=== PATIENT | female | born 1985 | race Caucasian/White ===

== ENCOUNTER 2017-08-19 00:55 | Emergency (ER) | payer SELFPAY ==
[~2017-08-19] VITALS: Ht 172.7 cm; Wt 100.3 kg
[~2017-08-19 00:55] MED LIST: APRESOLINE50 MG PO; BACTRIM,SEPT1 TABLET PO; CATAPRES0.2 MG PO; CLONIDINE HCL0.2 MG PO; Diabeta,Micronase PO; GEODON40 MG PO; KEFLEX500 MG PO; MOTRIN800 MG PO; NAPROSYN500 MG PO; NATALCARE RX1 TABLE1 PO; PREDNISONE20 MG PO; SEROQUEL100 MG PO; ULTRAM50 MG PO; VALIUM2 MG PO; Zoloft PO
[2017-08-19] MEDS ORDERED: MOTRIN800 MG PO (03:19)
[2017-08-19] MEDS ORDERED: TYLENOL WITH C1 EACH PO (03:19)
[2017-08-19 03:32] VITALS: BP 162/102
== END 2017-08-19 03:32 | disposition home or self-care (01) ==
LOC: EME 00:55 → EXP 00:55
DX: J02.0 Streptococcal pharyngitis (principal); R51 Headache; F17.200 Nicotine dependence, unspecified, uncomplicated
CPT/HCPCS: 87651 90; 99281; 99284; J0561

== ENCOUNTER 2017-09-10 22:58 | Emergency (ER) | payer SELFPAY ==
[~2017-09-10] VITALS: Ht 172.7 cm; Wt 101.0 kg
[~2017-09-10 22:58] MED LIST changes: +TYLENOL WITH C1 EACH PO
[2017-09-11] MEDS ORDERED: IBUPROFEN800 MG PO (01:09)
[2017-09-11] MEDS ORDERED: TAMIFLU75 MG PO (01:11)
[2017-09-11 01:17] VITALS: BP 140/92
== END 2017-09-11 01:18 | disposition home or self-care (01) ==
LOC: EME 22:58
DX: J11.1 Influenza due to unidentified influenza virus with other respiratory manifestations (principal); R11.2 Nausea with vomiting, unspecified; R51 Headache; Z98.51 Tubal ligation status; F17.200 Nicotine dependence, unspecified, uncomplicated
CPT/HCPCS: 87651 90; 99281; 99283

== ENCOUNTER 2017-12-04 17:44 | Emergency (ER) | payer SELFPAY ==
[~2017-12-04] VITALS: Ht 175.3 cm; Wt 102.1 kg
[~2017-12-04 17:44] MED LIST changes: +IBUPROFEN800 MG PO; +TAMIFLU75 MG PO
[2017-12-04 19:33] VITALS: BP 186/109
== END 2017-12-04 19:51 | disposition left against medical advice (07) ==
LOC: EME 17:44
DX: R10.30 Lower abdominal pain, unspecified (principal); F19.10 Other psychoactive substance abuse, uncomplicated; I10 Essential (primary) hypertension; F32.9 Major depressive disorder, single episode, unspecified; F17.200 Nicotine dependence, unspecified, uncomplicated; Z98.51 Tubal ligation status
CPT/HCPCS: 99281; 99282

== ENCOUNTER 2017-12-08 23:52 | Emergency (ER) | payer SELFPAY ==
[~2017-12-08] VITALS: Ht 172.7 cm; Wt 99.5 kg
[2017-12-08 23:57] VITALS: BP 157/97
== END 2017-12-09 00:42 | disposition left against medical advice (07) ==
LOC: EME 23:52
DX: R45.1 Restlessness and agitation (principal); R03.0 Elevated blood-pressure reading, without diagnosis of hypertension; F14.90 Cocaine use, unspecified, uncomplicated; F11.90 Opioid use, unspecified, uncomplicated; F16.90 Hallucinogen use, unspecified, uncomplicated; F19.90 Other psychoactive substance use, unspecified, uncomplicated; G47.00 Insomnia, unspecified; Z98.51 Tubal ligation status; F17.200 Nicotine dependence, unspecified, uncomplicated; Z53.20 Procedure and treatment not carried out because of patient's decision for unspecified reasons
CPT/HCPCS: 99281; 99282